=== PATIENT | male | born 1955 | race Caucasian/White ===

== ENCOUNTER 2021-02-26 13:14 | Emergency (ER) | payer MEDICARE ==
[2021-02-26 16:43] VITALS: BP 135/82; TEMP 98.1
--- NOTE | 2021-02-26 16:53 | ED ---
General Adult HPI - General Source: patient Mode of arrival: ambulatory Limitations: no limitations <Michelle Buchanan - Last Filed: 02/26/21 17:01> <Tone Mena - Last Filed: 02/26/21 19:51> - General Chief complaint: Extremity Problem,Nontraumatic Stated complaint: leg pain, pneumonia complications Time Seen by Provider: 02/26/21 16:45 - History of Present Illness Initial comments: 65 year-old male patient diagnosed with COVID-19 on 02/10/21 presents at the request of his doctor for worsening pneumonia and right lower leg pain. States he continues to have cough and shortness of breath. Three days ago he developed pain to the right "achilles" area, states his ankle is swollen. He denies any current fever or chills. Just started his second round of antibiotics and steroids. Reports O2 saturations in the 80s with activity. His physician is concerned about possible blood clot. (Michelle Buchanan) - Related Data Previous Rx's Medication Instructions Recorded Apixaban [Eliquis] 5 mg PO BID 14 Days #30 tab 02/26/21 Allergies Allergy/AdvReac Type Severity Reaction Status Date / Time acetaminophen Allergy Hallucinati Verified 02/26/21 16:43 [From Darvocet-N] ons propoxyphene Allergy Hallucinati Verified 02/26/21 16:43 [From Darvocet-N] ons Review of Systems ROS Other: All systems not noted in ROS Statement are negative. <Michelle Buchanan - Last Filed: 02/26/21 17:01> ROS Other: All systems not noted in ROS Statement are negative. <Tone Mena - Last Filed: 02/26/21 19:51> ROS Statement: Those systems with pertinent positive or pertinent negative responses have been documented in the HPI. Past Medical History Past Medical History: No Reported History History of Any Multi-Drug Resistant Organisms: None Reported Past Surgical History: Appendectomy, Hernia Repair, Tonsillectomy Past Psychological History: No Psychological Hx Reported Smoking Status: Never smoker Past Alcohol Use History: Occasional Past Drug Use History: None Reported <Michelle Buchanan - Last Filed: 02/26/21 17:01> General Exam Limitations: no limitations General appearance: alert, in no apparent distress, other (This is a well- developed, well-nourished adult male in no acute distress.) Eye exam: Present: normal appearance, PERRL, EOMI. Absent: scleral icterus, conjunctival injection, periorbital swelling Respiratory exam: Present: normal lung sounds bilaterally, other (Able to speak full sentences. No respiratory distress.). Absent: respiratory distress, wheezes, rales, rhonchi, stridor Cardiovascular Exam: Present: regular rate, normal rhythm, normal heart sounds. Absent: systolic murmur, diastolic murmur, rubs, gallop, clicks GI/Abdominal exam: Present: soft, normal bowel sounds. Absent: distended, tenderness, guarding, rebound, rigid Neurological exam: Present: alert, oriented X3, CN II-XII intact Psychiatric exam: Present: normal affect, normal mood Skin exam: Present: warm, dry, intact, normal color. Absent: rash <Michelle Buchanan - Last Filed: 02/26/21 17:01> Course Vital Signs 02/26/21 02/26/21 16:36 18:23 Temperature 98.1 F Pulse Rate 102 H Respiratory 20 18 Rate Blood Pressure 135/82 O2 Sat by Pulse 92 L Oximetry Medical Decision Making - Lab Data Result diagrams: 02/26/21 17:02 02/26/21 17:02 <Tone Mena - Last Filed: 02/26/21 19:51> - Medical Decision Making Dictation was produced using [employer] dictation software. please excuse any g rammatical, word or spelling errors. Chief Complaint: 65-year-old male presents to emergency department for right lower extremity swelling and chest congestion. History of Present Illness: Patient is 65-year-old male presents emergency department for lower extremity swelling and chest congestion. Patient is diagnosed with covered on February 10. He reports that he's been recovering well from the gates virus. He states that he had a follow-up plan with his primary care doctor. He told his primary care doctor about his symptoms. Sent to the emergency department for evaluation. Patient states that he has chest congestion that has been present but slightly improving since being evaluated for COVID-19. Over the last couple days he develop calf swelling that went all with down to his Achilles area. She is no history of blood clot. He is told that he should come to the ER for concerns of DVT versus PE. The ROS documented in this emergency department record has been reviewed and confirmed by me. Those systems with pertinent positive or negative responses have been documented in the HPI. All other systems are other negative and/or noncontributory. PHYSICAL EXAM: General Impression: Alert and oriented x3, not in acute distress HEENT: Normocephalic atraumatic, extra-ocular movements intact, pupils equal and reactive to light bilaterally, mucous membranes moist. Cardiovascular: Heart regular rate and rhythm Chest: Able to complete full sentences, no retractions, no tachypnea Abdomen: abdomen soft, non-tender, non-distended, no organomegaly Musculoskeletal: Pulses present and equal in all extremities, no peripheral edema Motor: no focal deficits noted Neurological: CN II-XII grossly intact, no focal motor or sensory deficits noted Skin: Intact with no visualized rashes Psych: Normal affect and mood ED course: 65-year-old male presents emergency department for chest congestion and right lower extremity swelling. He has been recovering from gates virus since last month. Ends upon arrival shows heart rate of 102, oxygen saturation 90%, rest of vital signs within acceptable limits. Laboratory evaluation obtained. CBC, metabolic panel is unremarkable. D-dimer is 3.17. CT angiogram does not show any evidence of pulmonary embolism. He does appear to be patchy multifocal pneumonia which is expected given that he's been recovering forearm COVID-19. Ultrasound of the lower extremity shows no signs of vein thrombosis in the femoral and popliteal vein. However there is evidence for calf DVT. Ambulatory pulse ox is not hypoxic. Patient given first dose of all closed 10 mg. Per prescription and advised to follow-up with his primary care doctor. I did discuss with Dr. Kiser who is aware patient's diagnosis. (Tone Mena) - Lab Data Lab Results 02/26/21 02/26/21 02/26/21 Range/Units 17:02 17:02 17:02 WBC 8.4 (3.8-10.6) k/uL RBC 4.62 (4.30-5.90) m/uL Hgb 14.4 (13.0-17.5) gm/dL Hct 42.0 (39.0-53.0) % MCV 91.0 (80.0-100.0) fL MCH 31.1 (25.0-35.0) pg MCHC 34.2 (31.0-37.0) g/dL RDW 12.8 (11.5-15.5) % Plt Count 342 (150-450) k/uL MPV 6.8 Neutrophils % 77 % Lymphocytes % 16 % Monocytes % 5 % Eosinophils % 1 % Basophils % 0 % Neutrophils # 6.4 (1.3-7.7) k/uL Lymphocytes # 1.4 (1.0-4.8) k/uL Monocytes # 0.4 (0-1.0) k/uL Eosinophils # 0.1 (0-0.7) k/uL Basophils # 0.0 (0-0.2) k/uL D-Dimer 3.17 H (<0.60) mg/L FEU Sodium 138 (137-145) mmol/L Potassium 4.1 (3.5-5.1) mmol/L Chloride 104 (98-107) mmol/L Carbon Dioxide 25 (22-30) mmol/L Anion Gap 9 mmol/L BUN 23 H (9-20) mg/dL Creatinine 1.02 (0.66-1.25) mg/dL Est GFR (CKD-EPI)AfAm 89 (>60 ml/min/1.73 sqM) Est GFR (CKD-EPI)NonAf 77 (>60 ml/min/1.73 sqM) Glucose 130 H (74-99) mg/dL Calcium 9.1 (8.4-10.2) mg/dL Total Bilirubin 0.4 (0.2-1.3) mg/dL AST 28 (17-59) U/L ALT 47 (4-49) U/L Alkaline Phosphatase 75 (38-126) U/L Lactate Dehydrogenase 446 (313-618) U/L C-Reactive Protein 0.8 (<1.0) mg/dL Total Protein 6.5 (6.3-8.2) g/dL Albumin 3.7 (3.5-5.0) g/dL Disposition <Michelle Buchanan - Last Filed: 02/26/21 17:01> Is patient prescribed a controlled substance at d/c from ED?: No <Tone Mena - Last Filed: 01/03/22 19:51> Clinical Impression: Deep vein thrombosis (DVT) of lower extremity, Calf DVT (deep venous thrombosis) Disposition: HOME SELF-CARE Condition: Fair Instructions (If sedation given, give patient instructions): Deep Vein Thrombosis (ED) Prescriptions: Apixaban [Eliquis] 5 mg PO BID 14 Days #30 tab Referrals: Yaz Kiser DO [Primary Care Provider] - 1-2 days
[2021-02-26 17:21] LABS: Basophils % (A) 0 %; Eosinophils # (A) 0.1 k/uL (0-0.7); Eosinophils % (A) 1 %; HGB 14.4 gm/dL (13.0-17.5); Lymphocytes # (A) 1.4 k/uL (1.0-4.8); Lymphocytes % (A) 16 %; MCH 31.1 pg (25.0-35.0); MCHC 34.2 g/dL (31.0-37.0); Mean Platelet Volume 6.8; Monocytes # (A) 0.4 k/uL (0-1.0); Monocytes % (A) 5 %; Neutrophils # (A) 6.4 k/uL (1.3-7.7); Neutrophils % (A) 77 %; Platelet Count 342 k/uL (150-450); RBC 4.62 m/uL (4.30-5.90); RDW 12.8 % (11.5-15.5); WBC 8.4 k/uL (3.8-10.6)
[2021-02-26 17:33] LABS: Albumin 3.7 g/dL (3.5-5.0); C Reactive Protein 0.8 mg/dL (<1.0); Calcium 9.1 mg/dL (8.4-10.2); Potassium 4.1 mmol/L (3.5-5.1); Total Bilirubin 0.4 mg/dL (0.2-1.3); Total Protein 6.5 g/dL (6.3-8.2)
[2021-02-26 18:29] VITALS: RESP 18
--- NOTE | 2021-02-26 18:36 | CT ---
EXAMINATION TYPE: CT chest angio for PE DATE OF EXAM: 02/26/2021 COMPARISON: None HISTORY: SOB, recent covid pneumonia CT DLP: 362.2 mGycm Automated exposure control for dose reduction was used. CONTRAST: Performed with IV Contrast, patient injected with 100 mL of Isovue 300. Images obtained from the thoracic inlet to the diaphragm with IV contrast. There are Three-D postproc essed images. There is patchy interstitial and airspace infiltrates in the periphery of both lungs. Infiltrates sli ghtly worse on the right side. There is no pleural effusion. There is no pericardial effusion. Heart size is normal. There is no mediastinal adenopathy. There are no hilar masses. Thoracic aorta is intact. There is no aneurysm or dissection. There is normal contrast opacification of the pulmonary arteries. There are n o filling defects. The thoracic vertebra. Tach. There is no compression fracture. Sternum is intact. Upper abdominal sof t tissues are intact. IMPRESSION: No evidence of pulmonary embolism. Patchy multifocal pneumonia.
--- NOTE | 2021-02-26 19:24 | US ---
EXAMINATION TYPE: US venous doppler duplex LE RT DATE OF EXAM: 02/26/2021 6:55 PM COMPARISON: NONE CLINICAL HISTORY: Leg swelling/pain. Pain and swelling. No hx of DVT. Patient takes baby aspirin. SIDE PERFORMED: Right TECHNIQUE: The lower extremity deep venous system is examined utilizing real time linear array sonog suman with graded compression, doppler sonography and color-flow sonography. VESSELS IMAGED: Common Femoral Vein Deep Femoral Vein Greater Saphenous Vein * Femoral Vein Popliteal Vein Small Saphenous Vein * Proximal Calf Veins (* superficial vessels) Right Leg: Internal echoes seen within paired calf veins at the ankle level only, appear to be PTVs. These paired veins do not appear to compress and show lack of color flow. IMPRESSION: There is no evidence of deep vein thrombosis in the femoral and popliteal vein. There is evidence for limited deep vein thrombosis at the ankle in the posterior tibial vein.
[2021-02-26] MEDS ORDERED: APIXABAN 5 MG TAB PO STA (19:40)
[2021-02-26 20:00] VITALS: PULSE 98
== END 2021-02-26 20:03 | disposition home or self-care (01) ==
LOC: EC 13:14
DX: I82.4Z1 Acute embolism and thrombosis of unspecified deep veins of right distal lower extremity (principal); Z79.01 Long term (current) use of anticoagulants; Z90.49 Acquired absence of other specified parts of digestive tract
CPT/HCPCS: 99285; 36415; 85379; 80053; 83615; 85025; 86140; 84145; 93971; 71275; Q9967